=== PATIENT | female | born 1940 | race Caucasian/White ===

== ENCOUNTER 2024-10-11 11:19 | Emergency (ER) | payer MEDICARE ==
[~2024-10-11] VITALS: Ht 162.6 cm; Wt 78.0 kg
[~2024-10-11 11:19] MED LIST: ASPIRIN EC81 MG PO; METFORMIN HCL500 MG PO; METOPROLOL SUCC50 MG PO; VERAPAMIL ER240 M1 PO; VITAMIN C1000 MG PO; VITAMIN D5000 UNIT PO
[2024-10-11] MEDS ORDERED: NORTRIPTYLINE H10 MG PO (11:55)
[2024-10-11] MEDS ORDERED: COZAAR100 MG PO (11:55)
[2024-10-11] MEDS ORDERED: NORVASC5 MG PO (11:56)
[2024-10-11] MEDS ORDERED: GLIPIZIDE ER5 MG PO (11:56)
[2024-10-11] MEDS ORDERED: ACETAMINOPHEN 500 MG TAB PO ONE (12:45)
[2024-10-11 13:03] VITALS: BP 165/81
== END 2024-10-11 13:04 | disposition home or self-care (01) ==
LOC: ED 11:19
DX: S61.512A Laceration without foreign body of left wrist, initial encounter (principal); I10 Essential (primary) hypertension; E11.9 Type 2 diabetes mellitus without complications; Z87.891 Personal history of nicotine dependence; Z91.048 Other nonmedicinal substance allergy status; Z79.84 Long term (current) use of oral hypoglycemic drugs; Z79.899 Other long term (current) drug therapy; W26.8XXA Contact with other sharp object(s), not elsewhere classified, initial encounter; Y93.G1 Activity, food preparation and clean up
CPT/HCPCS: 12001; 99282